=== PATIENT | female | born 1950 | race Caucasian/White ===

== ENCOUNTER 2021-08-21 17:24 | Inpatient (IN) ==
[2021-08-21] MEDS ORDERED: Haloperidol Oral Conc 10 MG/5 ML UDC PO PRN (18:04)
[2021-08-21] MEDS ORDERED: Hyoscyamine SL 0.125 MG TAB.SUBL SL PRN (18:05)
[2021-08-21] MEDS: Apixaban 5 MG TABLET PO SCH (20:41)
[2021-08-21] MEDS: Morphine Sulfate Oral CONC 10 MG/0.5 ML ORAL.SYG SL PRN (20:41)
[2021-08-21] MEDS: Gabapentin 300 MG CAPSULE PO SCH (20:41)
[2021-08-22] MEDS: Morphine Sulfate Oral CONC 10 MG/0.5 ML ORAL.SYG SL PRN ×3 (05:08→21:14)
[2021-08-22] MEDS: Gabapentin 300 MG CAPSULE PO SCH ×3 (09:07→21:14)
[2021-08-22] MEDS: Apixaban 5 MG TABLET PO SCH ×2 (09:07→21:14)
[2021-08-23] MEDS: *HR* LORazepam 0.5 MG TABLET PO PRN ×2 (02:25→21:59)
[2021-08-23] MEDS: Gabapentin 300 MG CAPSULE PO SCH ×3 (09:51→21:39)
[2021-08-23] MEDS: Apixaban 5 MG TABLET PO SCH ×2 (09:51→21:40)
[2021-08-23] MEDS: Morphine Sulfate Oral CONC 10 MG/0.5 ML ORAL.SYG SL PRN (12:16)
[2021-08-24] MEDS: Gabapentin 300 MG CAPSULE PO SCH ×3 (09:49→20:10)
[2021-08-24] MEDS: Apixaban 5 MG TABLET PO SCH ×2 (09:49→20:10)
[2021-08-24] MEDS: Morphine Sulfate Oral CONC 10 MG/0.5 ML ORAL.SYG SL PRN (20:10)
[2021-08-24] MEDS: Acetaminophen 325 MG TABLET PO PRN (20:10)
[2021-08-25] MEDS: Morphine Sulfate Oral CONC 10 MG/0.5 ML ORAL.SYG SL PRN ×2 (03:32→22:38)
[2021-08-25] MEDS: Gabapentin 300 MG CAPSULE PO SCH ×3 (09:14→22:26)
[2021-08-25] MEDS: Apixaban 5 MG TABLET PO SCH ×2 (09:14→22:25)
[2021-08-25] MEDS: Acetaminophen 325 MG TABLET PO PRN (09:24)
[2021-08-25 12:58] LABS: Bilirubin,Urine Negative (Negative); Blood,Urine Moderate (Negative); Clarity,Urine Cloudy (Clear); Color,Urine Yellow (Yellow); Glucose,Urine (UA) Normal (Normal); Ketones,Urine Negative (Negative); Leukocyte Esterase,Urine Moderate (Negative); Nitrite,Urine Positive (Negative); Protein,Urine 30 mg/dL (Neg-Trace); Urobilinogen,Urine Normal (Normal)
[2021-08-25 13:04] LABS: WBC,Urine TNTC per hpf (0-3)
[2021-08-25] MEDS: levoFLOXacin 500 MG TABLET PO SCH (22:26)
[2021-08-26 06:58] VITALS: BP 118/72; PULSE 77; RESP 16; TEMP 98.4; O2SAT 96
[2021-08-26] MEDS: Apixaban 5 MG TABLET PO SCH (08:14)
[2021-08-26] MEDS: Gabapentin 300 MG CAPSULE PO SCH (08:15)
[2021-08-26] MEDS: levoFLOXacin 500 MG TABLET PO SCH (08:15)
== END 2021-08-26 12:00 | disposition hospice, home (50) | DRG 951 ==
LOC: INPGRE 17:52
PROVIDERS: ADMIT Family Medicine; ATTEND Family Medicine